=== PATIENT | male | born 1955 | race Caucasian/White ===

== ENCOUNTER 2024-01-21 10:53 | Emergency (ER) | payer MEDICARE, BC, SELFPAY ==
[2024-01-21 10:55] VITALS: BP 162/98
[2024-01-21 11:26] LABS: % Basophils 0.3 % (0-2); % Eosinophils 0.5 % (0-6); % Immature Granulocytes 0.3 % (0-0.5); % Lymphocytes 15.4 % (20.5-51.1); % Monocytes 6.3 % (1.7-9.3); % Neutrophils 77.2 % (42.2-75.2); Absolute Eosinophils 0.1 10^3/uL (0-0.7); Absolute Lymphocytes 1.8 10^3/uL (1.2-3.4); Absolute Monocytes 0.7 10^3/uL (0.1-0.6); Absolute Neutrophils 8.8 10^3/uL (1.4-6.5); Hematocrit 50.3 % (39.0-52.0); Hemoglobin 16.6 g/dL (13.0-18.0); Mean Corpuscular Hgb 30.9 pg (27.0-31.0); Mean Corpuscular Volume 93.5 fL (80.0-94.0); Mean Platelet Volume 8.9 fL (7.4-10.4); Nucleated Red Blood Cells % 0 % (-); Platelet Count 255 10^3/uL (130-400); Red Blood Cell Count 5.38 10^6/uL (4.70-6.10); Red Cell Dist. Width 13.3 % (11.5-14.5); White Blood Cell Count 11.5 10^3/uL (4.8-10.8)
[2024-01-21 11:42] LABS: ALT (SGPT) 30 U/L (0-50); AST (SGOT) 34 U/L (17-59); Albumin 4.8 g/dl (3.5-5.0); Alkaline Phosphatase 80 U/L (38-126); Blood Urea Nitrogen 23 mg/dl (9-20); Calcium 9.9 mg/dl (8.4-10.2); Carbon Dioxide 27 mmol/L (22-30); Chloride 103 mmol/L (98-107); Glucose 131 mg/dl (70-99); Potassium 4.9 mmol/L (3.5-5.1); Sodium 144 mmol/L (135-145); Total Bilirubin 0.9 mg/dl (0.2-1.3); Total Protein 8.1 g/dl (6.3-8.2); eGFR > 60.00
[2024-01-21 12:05] VITALS: BP 154/88
--- NOTE | 2024-01-21 12:21 | ED.GENMED ---
History of Present Illness
<Viky Guzman PA-C - Last Filed: 01/21/24 15:44>
General
Chief Complaint: Eye Problems
Source: patient and spouse
Time Seen by Provider: 01/21/24 12:00
History of Present Illness
History of Present Illness:
68yoM with no significant past medical history presenting with his for evaluation of a visual disturbance. Patient went to bed around 7-8pm last night feeling normal. He woke up in the middle of the night to get some water. He was leaning
against the kitchen counter when he slid down and fell to the floor. He is unsure what time this was but believes it was around 10pm. Patient is unsure if he lost consciousness or if he hit his head. Patient went back to bed after the fall. He
woke up this morning and noticed double vision around 8am. He states he is seeing two pictures on a slant. Symptoms are only present if he has both eyes open and resolves if he closes either eye. He also feels a bit unsteady on his feet and had to
[employer] while driving today. He denies any visual field cuts, floaters, eye pain, drainage. No headache, dizziness, paresthesias, weakness. He does not regularly see a PCP.
Past History
<Viky Guzman PA-C - Last Filed: 01/21/24 15:44>
Past History
ED Past Medical History: None
Social History
Tobacco: Non-smoker
Phy Exam
<Viky Guzman PA-C - Last Filed: 01/21/24 15:44>
General Physical Exam
General Presentation: well appearing and no apparent distress
General age: appears stated age
General Skin: warm and dry
General Habitus: normal
General Mental: alert
ENT Exam
ENT Exam: normocephalic
Eye Exam
Eye Exam: PERRL, EOMI, conjunctiva normal and visual irwin normal
Pulmonary Exam
Pulmonary Exam: no respiratory distress
Neurological Exam
Neurological Exam: alert and other (CN 2-12 grossly intact. PERRL. EOMs intact. Visual irwin normal. 5/5 strength and gross sensation intact in all extremities. Normal finger to nose and heel to dee bilaterally. No gait ataxia noted.)
[place] Coma Scale
Eye Opening: Spontaneous
Verbal Response: Oriented
Motor Response: Obeys Commands
GCS Total Score: 15
Skin Exam
Skin Exam: normal color and warm/dry
Psychiatric Exam
Psychiatric Exam: normal mood/affect
Course
<Viky Guzman PA-C - Last Filed: 01/21/24 15:44>
Orders/Labs/Results
Orders:
Orders
01/21/24 11:03
CT Head W/o Iv Contrast Urgent
Comment:
Reason For Exam: fall
01/21/24 11:10
Complete Blood Count/With Diff Urgent
Comprehensive Metabolic Panel Urgent
01/21/24 12:22
Electrocardiogram (*1) Urgent
Reason for Study: Other
Other Reason for Exam: fall, possible syncope
EKG- Treatment ONCE
01/21/24 12:38
Troponin I Urgent
01/21/24 13:06
NEUROLOGY CONSULT Urgent
Consulting Provider: Salas Vivar
Was physician already notified: Yes
01/21/24 13:57
Add On- LAB Routine
Comments:: Please add to today's labs or draw as routine
Tests Added?: TSH reflex, Ferritin, Folate, Vit. B12, ESR, Lyme
01/21/24 13:58
Add On- LAB Routine
Comments:: Please add to today's labs or draw as routine
Tests Added?: CRP, HgbA1C, DILEEP, acetylcholine receptor antibodies
01/21/24 14:49
DILEEP, IgG Reflex to HEp-2 [S] Urgent
Acetylcholine Receptor Bind Ab [S] Urgent
CRP [C-Reactive Protein] Urgent
ESR [Erythrocyte Sed Rate] Urgent
Ferritin Urgent
Folate Urgent
Hemoglobin A1c [Glycohemoglobin (HgbA1c)] Urgent
Lyme Progressive Urgent
TSH Reflex To Free T4 Urgent
Vitamin B12 Urgent
Abnormal Lab Results
01/21/24
11:10
WBC 11.5 H 10^3/uL
(4.8-10.8)
Absolute Neuts (auto) 8.8 H 10^3/uL
(1.4-6.5)
Absolute Monos (auto) 0.7 H 10^3/uL
(0.1-0.6)
Neutrophils % 77.2 H %
(42.2-75.2)
Lymphocytes % 15.4 L %
(20.5-51.1)
BUN 23 H mg/dl
(9-20)
Glucose 131 H mg/dl
(70-99)
01/21/24 11:10
01/21/24 11:10
Vital Signs
Initial and Last Documented VS:
Initial Vital Signs
Temp Pulse Resp BP Pulse Ox
97.9 F 92 18 162/98 100
01/21/24 10:55 01/21/24 10:55 01/21/24 10:55 01/21/24 10:55 01/21/24 10:55
Last Documented Vital Signs
Temp Pulse Resp BP Pulse Ox
97.9 F 96 19 147/88 96
01/21/24 10:55 01/21/24 14:15 01/21/24 14:15 01/21/24 13:00 01/21/24 14:15
<Neri Lopes, DO - Last Filed: 01/21/24 12:54>
Orders/Labs/Results
Orders:
Orders
01/21/24 11:03
CT Head W/o Iv Contrast Urgent
Comment:
Reason For Exam: fall
01/21/24 11:10
Complete Blood Count/With Diff Urgent
Comprehensive Metabolic Panel Urgent
01/21/24 12:22
Electrocardiogram (*1) Urgent
Reason for Study: Other
Other Reason for Exam: fall, possible syncope
EKG- Treatment ONCE
01/21/24 12:38
Troponin I Urgent
01/21/24 13:06
NEUROLOGY CONSULT Urgent
Consulting Provider: Salas Vivar
Was physician already notified: Yes
01/21/24 13:57
Add On- LAB Routine
Comments:: Please add to today's labs or draw as routine
Tests Added?: TSH reflex, Ferritin, Folate, Vit. B12, ESR, Lyme
01/21/24 13:58
Add On- LAB Routine
Comments:: Please add to today's labs or draw as routine
Tests Added?: CRP, HgbA1C, DILEEP, acetylcholine receptor antibodies
01/21/24 14:49
DILEEP, IgG Reflex to HEp-2 [S] Urgent
Acetylcholine Receptor Bind Ab [S] Urgent
CRP [C-Reactive Protein] Urgent
ESR [Erythrocyte Sed Rate] Urgent
Ferritin Urgent
Folate Urgent
Hemoglobin A1c [Glycohemoglobin (HgbA1c)] Urgent
Lyme Progressive Urgent
TSH Reflex To Free T4 Urgent
Vitamin B12 Urgent
Abnormal Lab Results
01/21/24
11:10
WBC 11.5 H 10^3/uL
(4.8-10.8)
Absolute Neuts (auto) 8.8 H 10^3/uL
(1.4-6.5)
Absolute Monos (auto) 0.7 H 10^3/uL
(0.1-0.6)
Neutrophils % 77.2 H %
(42.2-75.2)
Lymphocytes % 15.4 L %
(20.5-51.1)
BUN 23 H mg/dl
(9-20)
Glucose 131 H mg/dl
(70-99)
01/21/24 11:10
01/21/24 11:10
Vital Signs
Initial and Last Documented VS:
Initial Vital Signs
Temp Pulse Resp BP Pulse Ox
97.9 F 92 18 162/98 100
01/21/24 10:55 01/21/24 10:55 01/21/24 10:55 01/21/24 10:55 01/21/24 10:55
Last Documented Vital Signs
Temp Pulse Resp BP Pulse Ox
97.9 F 96 19 147/88 96
01/21/24 10:55 01/21/24 14:15 01/21/24 14:15 01/21/24 13:00 01/21/24 14:15
<Viky Guzman PA-C - Last Filed: 01/21/24 15:44>
MDM/Problems Addressed
Differential Diagnosis Includes:
68yoM here with binocular diplopia that started this morning. Associated with subjective gait disturbance. Also had a fall last night and unsure if he lost consciousness. He is hypertensive with otherwise normal vital signs. No focal neuro deficits
appreciated. EOMs intact and visual irwin normal. Differential diagnosis includes but is not limited to: cranial nerve palsy, CVA, myasthenia gravis
Initial ED plan: Basic labs and CT head obtained in triage. CT head negative for acute findings. Will check troponin and EKG. Will consult neurology.
<Viky Guzman PA-C - Last Filed: 01/21/24 15:44>
*EKG
Interpreted by ED Provider?: Yes
EKG Intrepretation Date: 01/21/24
Heart Rate: 88
Rate: normal
Rhythm: sinus
[place]: normal axis
Interval: normal interval
QRS Pattern: normal QRS
Ischemia: no ischemia
*Critical Care Note
Total Time (30-74mins, 75-104mins- exclusive of procedures): Not Applicable
<Viky Guzman PA-C - Last Filed: 01/21/24 15:44>
Update Note
Update Note:
EKG shows NSR without ischemic changes and troponin WNL. Patient evaluated by neurologist Dr. Viavr. 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 Neurology recommending outpatient MRI. No indication for
admission at this time. Multiple labs also added by neurology including folate, vitamin B12, Lyme testing, DILEEP, and acetylcholine receptor binding antibodies. Recommendations discussed with patient and and both are in agreement with plan.
Advised close f/u with PCP and neurology. Strict ED return precautions discussed including any new neurologic symptoms. He was discharged in stable condition.
ED Attending Note
<Viky Guzman PA-C - Last Filed: 01/21/24 15:44>
-
Portions of this chart may have been created with voice recognition software.� Occasional wrong word or��sound alike� substitutions may have occurred due to the inherent limitations of voice recognition software.
<Neri Lopes DO - Last Filed: 01/21/24 12:54>
ED Attending Note
Patient seen and examined by attending physician: Yes
I performed the substantive portion of visit, reviewed & personally made and approve the management plan that is documented in note by myself or ASMSON.: Yes
ED Attending Note:
Sick 8-year-old male presents after he noticed double vision this morning. He did have a fall in the middle of the night and is unsure whether was just a mechanical fall where he had a double vision at the time. He currently also admits to feeling
off balance with his ambulation. He states he can walk but he feels not normal for him and is not sure if it is related to double vision. Double vision is most notable when the patient turns his head and looks toward the side. He denies double
vision when his head is remaining still in midline. No headache. No neck pain. No shortness of breath. No chest pain. Exam: Extraocular muscles appear to be intact. I did question a small lag when he looked to the right but could not confirm
and on repeat exam. His pupils are equal round reactive. He has no pronator drift. Normal [id number] and normal [id number] assessment and plan: Given his age and findings, consult neurology. May need MRI
Discharge Plan
Departure
Patient Disposition: Home (Routine Discharge)
Date of Disposition: 01/21/24
Time of Disposition: 14:19
Patient with high blood pressure during this ER visit?: Yes
Discharge Problem:
Diplopia
Instructions: Double Vision (DC)
Prescriptions:
No Action
prednisone 20 mg tablet
20 mg PO BID Qty: 14 0RF
oxycodone 5 mg tablet
5 mg PO Q4H PRN (Reason: pain) Qty: 20 0RF
Referrals:
Salas Vivar MD [Active] -
UNKNOWN - PT DOES,NOT KNOW [Family Provider] -
Activity Restrictions/Additional Instructions:
You have been evaluated by the neurologist who cleared you for discharge. You will need to follow-up with a primary care doctor as well as neurology. You will need an MRI of your brain in the outpatient setting.
Return to the ER immediately with any new or worsening symptoms.
Interventions
Interventions:
*Risk Screen - Suicide Last Done: 01/21/24 10:55
*General Assessment Last Done: 01/21/24 10:55
*Neglect/Abuse Screening Last Done: 01/21/24 10:55
ED- Fall Risk Assessment Last Done: 01/21/24 14:59
*ED COVID-19 Vaccine History Last Done: 01/21/24 12:41
*Nursing Disposition Last Done: 01/21/24 14:59
Discharge Date and Time
Discharge Date/Time: 12/07/24 15:00
Print Language: CAMBODIAN
[2024-01-21 13:00] VITALS: BP 147/88
--- NOTE | 2024-01-21 13:10 | CON.NEURO ---
Neuro Assessment/Plan
Assessment
Acute onset diplopia
Differential diagnosis includes partial 3rd nerve palsy which without ptosis is less suggestive of myasthenia gravis
Plan
Check for metabolic abnormalities producing symptomatology
Check MRI of brain as outpatient with and without contrast to ensure no structural abnormality producing symptomatology
If worsening, patient may require spinal tap
Patient should meet with ophthalmology as outpatient
Not clear the patient would benefit from antiplatelet agents
Will follow as needed
Consultation
Order
Date of Consultation: 01/21/24
Requesting Provider: Emergency department provider
Reason for Consult: Diplopia
Subjective/Objective
Subjective Data
Date of Service: January 21, 2024
Right-Handed
Bedtime 19:00
Fell down last night to the floor prior to 22:00, unclear if struck head, did LOC for few seconds.
Patient reports that he began experiencing a sense of awareness of double vision with the left object higher than the right. Moving head to right leads to diplopia as opposed to moving head to the left which resolves diplopia
Wake time: 06:00, 08:00 realized vision not OK. Went to ED at 10:00 when realized not just TV or computer. No other symptomatology simultaneously
Not previously.
Objective Data
Vital Signs
Temp Pulse Resp BP Pulse Ox
36.6 C 87 14 154/88 98
01/21/24 10:55 01/21/24 12:40 01/21/24 12:40 01/21/24 12:05 01/21/24 12:40
Lab Results
01/21/24 11:10
01/21/24 11:10
Sodium 144 mmol/L (135-145) 01/21/24 11:10
Potassium 4.9 mmol/L (3.5-5.1) 01/21/24 11:10
BUN 23 mg/dl (9-20) H 01/21/24 11:10
Glucose 131 mg/dl (70-99) H 01/21/24 11:10
Calcium 9.9 mg/dl (8.4-10.2) 01/21/24 11:10
Patient Allergies
No Known Allergies Allergy (Verified 01/21/24 10:54)
Review of Systems
-
History Source: Patient and Family
All other systems: Reviewed and negative
EENT: Decreased Vision; Negative Swallowing Difficulty
Respiratory: Negative Trouble Breathing
Cardiac: Negative Chest Pain
Abdomen/GI: Negative Incontinence of Stool
Genitourinary: Negative Incontinence
Musculoskeletal: Neck Pain (chronic); Negative Back Pain
Neuro: Tremors (lifelong) and Other (cramping in legs at night 1 month, ); Negative Dizzy or Headache
Physical Exam
-
General: No Apparent Distress and Appears Stated Age
Eyes: OU Absent Papilledema, Able to visualize OU, Round OU, Marcus Conjunctivae and No Ptosis
HEENT: Anicteric and Moist Mucous Membranes
Neck: Full Range of Motion
Respiratory: No Dyspnea
Cardiac: No JVD
GI: Non-distended
Skin: Unremarkable
Extremities: No Clubbing, No Cyanosis and No Edema
Psych: Negative Intact Judgement/Insight
Extended Neurological Exam
Mood & Affect: Mood Unremarkable and Affect Unremarkable
Attention Span & Concentration: Awake, Alert, Interactive and No Difficulty with 2 Step Request
Memory: Unremarkable
Tremor: Head Tremor Absent, Amplitude (Low), Once, With Action and Other (Left nasolabial fold intermittent irregular tremor); Negative Hand Tremor Absent or At Rest
Speech: Quantity Unremarkable and Irregular (vocal tremor, constant with speech); Negative Rate of Production Unremarkable or Dysarthric
Cranial Nerve II: Left Eye: Pupillary Reactivity Unremarkable, Pupillary Size Unremarkable and Visual Davis Intact
Cranial Nerve II: Right Eye: Pupillary Reactivity Unremarkable, Pupillary Size Unremarkable and Visual Davis Intact
Cranial Nerves III, IV, : Extraocular Movement: Extraocular Movement Full in all Directions, No Ptosis and Other (Unable to produce nystagmus or downward drift of left pupil with prolonged upgaze)
Cranial Nerve VII: Facial Symmetry: Normal Facial Symmetry and Other (No tongue fasciculations)
Cranial Nerve VIII: Hearing: Unremarkable Hearing to Normal Conversational Volume
Cranial Nerves IX, X: Palate Movement: Palate Elevation Symmetric
Cranial Nerve XI: Shoulder Shrug: Unremarkable
Cranial Nerve XII: Tongue Protusion: Midline
Muscle Strength, Overall: Full Throughout
Muscle Bulk & Tone: Tone Unremarkable, Decreased Bulk and Other (Fasciculations in left greater than right thigh, described by family as nearly lifelong)
Pronator Drift: No Drift in Upper Extremities
Deep Tendon Reflexes: Unremarkable Throughout
Touch Sensation: Unremarkable
Coordination: Etnczl-aoak-kftxig Testing Unremarkable
Babinski Sign: Absent Bilaterally
Data Reviewed
-
CT Head: Report Reviewed
Labs: Ordered and Report Reviewed
Reviewed with: Physician Metal Tile Setter, Patient and Family
Old Records: Summarized
Medications
-
Home Medications
�Medication �Instructions �Recorded
oxycodone 5 mg tablet 5 mg PO Q4H PRN pain #20 tabs 01/30/22
prednisone 20 mg tablet 20 mg PO BID #14 tabs 01/30/22
Past History
Past History
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
ED Past Surgical History: Orthopedic (bilateral shoulders, bilateral hands surgery)
Social History
Tobacco: Non-smoker
Alcohol: Occasional
Drug: None
Personal:
Living: with family
Employment: Retired
Family History
Family History: Early CAD (in father) and Other (reviewed and non-contributory)
[2024-01-21 13:11] LABS: Troponin I < 0.012 ng/ml
[2024-01-21 15:29] LABS: C-Reactive Protein < 5.00 mg/L (0.0-10.00)
[2024-01-21 15:46] LABS: Erythrocyte Sed Rate 10 mm/hour (0-20)
[2024-01-21 16:00] LABS: TSH Reflex To Free T4 0.87 uIU/ml (0.47-4.68)
[2024-01-21 16:04] LABS: Ferritin 89.7 ng/ml (17.9-464.0)
[2024-01-21 16:35] LABS: Folate 19.4 ng/ml (2.76-20); Vitamin B12 556 pg/ml (239-931)
[2024-01-23 14:28] LABS: Lyme Antibody Screen, EIA Negative (Negative)
[2024-01-24 17:49] LABS: ANA, IgG Reflex to HEp-2 None Detected (None Detected)
== END 2024-01-21 15:00 | disposition home or self-care (01) ==
LOC: EMR 10:53
PROVIDERS: Physician Assistant; CONSULT PHYSICIAN Psychiatry & Neurology Neurology; EMERGENCY PHYSICIAN Emergency Medicine
DX: H53.2 Diplopia (principal); R26.89 Other abnormalities of gait and mobility; W19.XXXA Unspecified fall, initial encounter
CPT/HCPCS: 99284; 70450; 80053; 82607; 82728; 82746; 83036; 84443; 84484; 85025; 85652; 86038; 86041; 86140; 86618; 93005